=== PATIENT | male | born 1975 | race Two or more races ===

== ENCOUNTER 2017-02-09 12:21 | Emergency (ER) | payer OTHER ==
[2017-02-09 12:28] VITALS: RESP 18; TEMP 97.7
--- NOTE | 2017-02-09 12:58 | EDPHY ---
H & P Time Seen by Provider: 02/09/17 12:33 HPI/ROS: CHIEF COMPLAINT: Left ankle pain HISTORY OF PRESENT ILLNESS: 42-year-old male presents to the emergency department by private vehicle complaining of ongoing pain in his left ankle. Patient states that he was seen at [facility] on December 27 for a rash that he had on both feet. He was diagnosed with a fungal infection was treated with Lotrimin cream. He has been applying this twice daily as instructed. He does not feel that it is helped at all. 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 He states over last few weeks he has noticed more pain especially in the medial aspect of his left ankle but more so when he is on his feet for an extended period of time. He was going to follow-up at [facility] however they did not have a timely appointment. No fevers or chills. No chest pain or difficulty breathing. No pain radiating into his left groin. He had the rash initially to both feet however it is left ankle that is painful. Denies any other reported trauma. REVIEW OF SYSTEMS: Constitutional: No fever, no chills. Eyes: No double or blurry vision. ENT: No sore throat. Respiratory: No cough, no shortness of breath. Cardiac: No chest pain. Gastrointestinal: No abdominal pain, vomiting or diarrhea. Genitourinary: No dysuria. Musculoskeletal: No neck or back pain. Skin: Rash bilateral feet and ankle Neurological: No headache. Past Medical/Surgical History: Negative Social History: [place]an-speaking only, single Physical Exam: General Appearance: Alert, no distress. Afebrile. No apparent distress. information strategist, Roseanne, at bedside Eyes: Pupils equal and round. Extraocular motions are all intact. ENT: Mouth: Mucous membranes moist. Respiratory: No wheezing, rhonchi, or rales, lungs are clear to auscultation. Cardiovascular: Regular rate and rhythm. Gastrointestinal: Abdomen is soft and nontender, no masses, no rebound or guarding, bowel sounds normal. Neurological: Alert and oriented x 3, cranial nerves II through XII grossly intact Skin: Diffuse erythematous excoriated rash noted to the dorsal aspect of both feet. The medial aspect of his left ankle he has open wound possible ulcerative lesion to the medial aspect overlying medial malleolus. It is nontender to palpate. It is edematous. No purulent drainage. No lymphangitis. Calf is nontender. Varicose veins are noted to both lower extremities. No calf pain or swelling. Musculoskeletal: Nontender to palpate along the cervical, thoracic or lumbar spine. Neck is supple. Extremities: Full range of motion and no peripheral edema. No pain with range of motion of his left ankle. Psychiatric: Patient is oriented X 3, there is no agitation. Constitutional: Initial Vital Signs Temperature (C) 36.5 C 02/09/17 12:22 Heart Rate 92 02/09/17 12:22 Respiratory Rate 18 02/09/17 12:22 Blood Pressure 133/80 H 02/09/17 12:22 O2 Sat (%) 98 02/09/17 12:22 O2 Delivery Mode Room Air Allergies/Adverse Reactions: No Known Allergies Allergy (Unverified 05/04/11 20:01) Home Medications: Medication Instructions Recorded Cephalexin [Keflex] 500 mg PO QID #28 cap 02/09/17 Sulfamethox/Tmp 800/160 mg 1 tab PO BID #14 tab 02/09/17 [Bactrim DS] Medical Decision Making - Diagnostics Imaging Results: Imaging Impressions Ankle X-Ray 02/09/17 12:51 Impression: Negative left ankle series. ED Course/Re-evaluation: 42-year-old male presents to the emergency department with concerns about infection to his left ankle. The patient has a history of varicose veins. On examination the patient has history of venous stasis. Nontender to palpate. X-rays were obtained which revealed no evidence of osteomyelitis. Laboratory studies including CBC and chemistries were within normal limits. Patient was also seen and examined by Dr. Juliana Thomas, who felt that his wounds likely represent venous stasis dermatitis with associated venous ulcer. Patient was encouraged to follow up with his primary care provider on Saturday, in 2 days. He was also given referral to [facility] in [place]. The patient will be started on Keflex and Bactrim. Wound culture has been obtained and is pending. He understands to return to the emergency department if he develops fever, pain in in his groin, or if he feels worse in any way. The patient does have improvement when he elevates his legs. He was given a note for work to be off over the next few days to help elevate his legs. I do not think this patient has evidence of tinea infection. He reports no itching. He has applied the Lotrimin cream for over 3 weeks. I discouraged from using a topical fungal cream until seen by the [facility]. Patient verbalized understanding and agreed. information strategist, Roseanne, with at bedside. Differential Diagnosis: Including but not limited to venous stasis, venous stasis dermatitis, ulcer, osteomyelitis, eczema, tinea - Data Points Laboratory Results: Laboratory Results 02/09/17 12:40 02/09/17 12:40 02/09/17 02/09/17 12:40 12:40 WBC 4.88 10^3/uL 10^3/uL (3.80-9.50) RBC 5.17 10^6/uL 10^6/uL (4.40-6.38) Hgb 15.8 g/dL g/dL (13.7-17.5) Hct 47.2 % % (40.0-51.0) MCV 91.3 fL fL (81.5-99.8) MCH 30.6 pg pg (27.9-34.1) MCHC 33.5 g/dL g/dL (32.4-36.7) RDW 12.6 % % (11.5-15.2) Plt Count 184 10^3/uL 10^3/uL (150-400) MPV 11.2 fL fL (8.7-11.7) Neut % (Auto) 57.1 % % (39.3-74.2) Lymph % (Auto) 28.3 % % (15.0-45.0) Hughes % (Auto) 10.7 % % (4.5-13.0) Eos % (Auto) 3.1 % % (0.6-7.6) Baso % (Auto) 0.4 % % (0.3-1.7) Nucleat RBC Rel Count 0.0 % % (0.0-0.2) Absolute Neuts (auto) 2.79 10^3/uL 10^3/uL (1.70-6.50) Absolute Lymphs (auto) 1.38 10^3/uL 10^3/uL (1.00-3.00) Absolute Monos (auto) 0.52 10^3/uL 10^3/uL (0.30-0.80) Absolute Eos (auto) 0.15 10^3/uL 10^3/uL (0.03-0.40) Absolute Basos (auto) 0.02 10^3/uL 10^3/uL (0.02-0.10) Absolute Nucleated RBC 0.00 10^3/uL 10^3/uL (0-0.01) Immature Gran % 0.4 % % (0.0-1.1) Immature Gran # 0.02 10^3/uL 10^3/uL (0.00-0.10) Sodium 143 mEq/L mEq/L (134-144) Potassium 4.1 mEq/L mEq/L (3.5-5.2) Chloride 107 mEq/L mEq/L (97-110) Carbon Dioxide 22 mEq/l mEq/l (22-31) Anion Gap 14 mEq/L mEq/L (8-16) BUN 10 mg/dL mg/dL (7-23) Creatinine 0.6 mg/dL L mg/dL (0.7-1.3) Estimated GFR > 60 Glucose 100 mg/dL mg/dL (70-100) Calcium 9.6 mg/dL mg/dL (8.5-10.4) Microbiology Results: MICROBIOLOGY 02/09/17 12:47 Ankle - Swab Gram Stain - Final Departure - Departure Disposition: Home, Routine, Self-Care Clinical Impression: Venous stasis dermatitis of both lower extremities, Ulcerative lesion left leg Condition: Good Instructions: Stasis Dermatitis (ED), Dermatitis (ED), Acute Wounds (ED) Additional Instructions: Keflex and Bactrim as directed for one week. Call [phone] for the results of your wound culture in 48 hours./Kiester Keflex y Bactrim analilia fue indicado por carin semana. Llame al [phone] dentro de 48 semanas para baldomero resultados del cultivo de la herida Return to the emergency department if you develop increasing pain, fever if you feel worse in any way./Regrese al departamento de Emergencia si desarrolla mas dolor, fiebre, o si se siente peor en cualquier forma. You likely have venous stasis dermatitis resulting in ulcerative lesion likely from poor circulation. Elevate your legs as much as possible to help with this. Please return to the emergency department if you develop a fever, increasing pain or swelling or any other concerns./Usted puede que tenga dermatitis venosa por estasis resultando en lesion de ulcera por pobre circulacion. Eleve baldomero piernas lo mas que sea posible para que le ayude con esto. Por favor regrese al departamento de emergencia si desarrolla fiebre, aumenta el dolor o lo hinchado o por cualquier preocupacion. You need to follow up with your primary care provider on Saturday to recheck and follow up in the [facility] this week./Usted necesita hacer seguimiento con muñoz medico de cabecera pare el kasia para un reviso y suzette segumiento con la clinica de heridas esta semana entrante. Referrals: Chi Robison MD [Medical Doctor] - 1-2 days without fail [facility] [Clinic] - 1-2 days without fail (Tell them you were seen in the emergency department in your told to be seen for follow-up.) Stand Alone Forms: Work Excuse Prescriptions: Cephalexin [Keflex] 500 mg PO QID #28 cap Sulfamethox/Tmp 800/160 mg [Bactrim DS] 1 tab PO BID #14 tab
[2017-02-09 13:05] LABS: % IMMATURE GRANULYOCYTES 0.4 % (0.0-1.1); ABSOLUTE IMMATURE GRANULOCYTES 0.02 10^3/uL (0.00-0.10); ADD DIFF? NO; ADD MORPH? NO; ADD SCAN? NO; ATYPICAL LYMPHOCYTE FLAG 20 (0-99); FRAGMENT RBC FLAG 0 (0-99); HEMATOCRIT 47.2 % (40.0-51.0); HEMOGLOBIN 15.8 g/dL (13.7-17.5); LEFT SHIFT FLG 0 (0-99); LIPEMIA HEMOLYSIS FLAG 80 (0-99); MEAN CELL HEMOGLOBIN 30.6 pg (27.9-34.1); MEAN CELL HEMOGLOBIN CONCENTR. 33.5 g/dL (32.4-36.7); MEAN CELL VOLUME 91.3 fL (81.5-99.8); MEAN PLATELET VOLUME 11.2 fL (8.7-11.7); PLATELET CLUMPS FLAG 0 (0-99); PLATELET COUNT 184 10^3/uL (150-400); RED BLOOD CELL COUNT 5.17 10^6/uL (4.40-6.38); RED CELL DISTRIBUTION WIDTH 12.6 % (11.5-15.2)
[2017-02-09 13:24] LABS: ANION GAP 14 mEq/L (8-16); CALCIUM 9.6 mg/dL (8.5-10.4); CARBON DIOXIDE 22 mEq/l (22-31); CHLORIDE 107 mEq/L (97-110); CREATININE 0.6 mg/dL (0.7-1.3); GLOMERULAR FILTRATION RATE > 60; GLUCOSE 100 mg/dL (70-100); POTASSIUM 4.1 mEq/L (3.5-5.2); SODIUM 143 mEq/L (134-144)
[2017-02-09 14:26] VITALS: BP 111/72; PULSE 67; O2SAT 95
== END 2017-02-09 14:48 | disposition home or self-care (01) ==
DX: I87.2 Venous insufficiency (chronic) (peripheral) (principal); L97.229 Non-pressure chronic ulcer of left calf with unspecified severity